=== PATIENT | female | born 1995 | race American Indian/Alaskan Native ===

== ENCOUNTER 2019-02-15 21:00 | Emergency (ER) | payer MEDICAID ==
--- NOTE | 2019-02-15 21:42 | Event Note ---
ED Screening Note Date of service: 02/15/19 ED Screening Note: This initial assessment/diagnostic orders/clinical plan/treatment(s) is/are subject to change based on patients health status, clinical progression and re- assessment by fellow clinical providers in the ED. Further treatment and workup at subsequent clinical providers discretion. Patient/guardian urged not to elope from the ED as their condition may be serious if not clinically assessed and managed. Initial orders include: 23yo BF states that she has nausea, stomach pain, and back pain x 1 week.
[2019-02-15 22:23] LABS: HCG Qualitative,Urine Positive (Negative)
[2019-02-15 22:24] LABS: Bacteria,Urine 1+ /HPF (Negative); Bilirubin,Urine NEG (Negative); Blood,Urine SM (Negative); Color,Urine Yellow (Yellow); Mucus,Urine 1+ /HPF; Protein,Urine <15 mg/dL mg/dL (Negative)
[2019-02-16] MEDS ORDERED: ACETAMINOPHEN 325 MG TAB PO ONE (01:30)
[2019-02-16] MEDS ORDERED: ONDANSETRON 4 MG ODT TAB PO ONE (01:30)
--- NOTE | 2019-02-16 01:36 | Emergency Department Report ---
ED General Adult HPI - General Chief complaint: Abdominal Pain Stated complaint: NAUSEA VOMITING STOMACH CRAMPS Time Seen by Provider: 02/16/19 01:24 Source: patient, RN notes reviewed, old records reviewed Mode of arrival: Ambulatory Limitations: No Limitations - History of Present Illness Initial comments: This is a 23-year-old female. This patient is not known to this provider previously. She believes she might be today. Assuming she is today, she would be 3, para 1. She has a history of right-sided salpingectomy in June of this year for presumed ectopic . The patient presents to the ER today with complaint of one week left lower quadrant and suprapubic abdominal pain, intermittent nausea and vomiting, and left-sided paralumbar back pain. Symptoms intermittent, did not radiate anywhere, and do not have exacerbating or relieving factors. The patient denies irritative and/or obstructive urinary symptoms. The patient makes no complaint of headache, neck pain, chest pain, or right lower quadrant abdominal pain. She indicates that she is not having vaginal bleeding. -: Gradual, week(s) (1) Location: back, abdomen Radiation: non-radiation Quality: aching Consistency: intermittent Improves with: none Worsens with: none - Related Data Previous Rx's Medication Instructions Recorded Last Taken Type Acetaminophen [Non-Aspirin Extra 500 mg PO Q6HR PRN #30 tablet 02/16/19 Unknown Rx Strength] Doxylamine Succinate/Vit B6 1 each PO QHS PRN #30 tablet. 02/16/19 Unknown Rx [Eduar Cano 10-10 mg Tablet] Olimpia Root [Olimpia] 250 mg PO QID PRN #30 capsule 02/16/19 Unknown Rx Vit-Fe Fumar-FA [ 1 tab PO QDAY #30 tablet 02/16/19 Unknown Rx Vitamin] cephALEXin [Keflex] 500 mg PO Q6HR #20 capsule 02/16/19 Unknown Rx Allergies Allergy/AdvReac Type Severity Reaction Status Date / Time No Known Allergies Allergy Unverified 02/15/19 21:35 ED Review of Systems ROS: Stated complaint: NAUSEA VOMITING STOMACH CRAMPS Other details as noted in HPI Constitutional: denies: fever Eyes: denies: eye discharge ENT: denies: congestion Cardiovascular: denies: syncope Gastrointestinal: nausea, vomiting. denies: constipation Genitourinary: denies: dysuria Musculoskeletal: back pain Skin: denies: lesions Neurological: denies: weakness Hematological/Lymphatic: denies: easy bleeding ED Past Medical Hx - Past Medical History Previous Medical History?: No - Surgical History Past Surgical History?: Yes Additional Surgical History: Right Salpingectomy - Social History Smoking Status: Unknown if ever smoked Substance Use Type: None - Medications Home Medications: Home Medications Medication Instructions Recorded Confirmed Last Taken Type Acetaminophen [Non-Aspirin Extra 500 mg PO Q6HR PRN #30 tablet 02/16/19 Unknown Rx Strength] Doxylamine Succinate/Vit B6 1 each PO QHS PRN #30 tablet.dr 02/16/19 Unknown Rx [Diclegis Dr 10-10 mg Tablet] Olimpia Root [Olimpia] 250 mg PO QID PRN #30 capsule 02/16/19 Unknown Rx Vit-Fe Fumar-FA [ 1 tab PO QDAY #30 tablet 02/16/19 Unknown Rx Vitamin] cephALEXin [Keflex] 500 mg PO Q6HR #20 capsule 02/16/19 Unknown Rx ED Physical Exam - General Limitations: No Limitations General appearance: alert, in no apparent distress - Head Head exam: Present: atraumatic, normocephalic - Eye Eye exam: Present: normal appearance, EOMI. Absent: nystagmus - ENT ENT exam: Present: normal exam, normal orophraynx, mucous membranes moist, normal external ear exam - Neck Neck exam: Present: normal inspection, full ROM. Absent: tenderness, meningi smus - Respiratory Respiratory exam: Present: normal lung sounds bilaterally. Absent: respiratory distress - Cardiovascular Cardiovascular Exam: Present: regular rate, normal rhythm, normal heart sounds. Absent: bradycardia, tachycardia, irregular rhythm, systolic murmur, diastolic murmur, rubs, gallop - GI/Abdominal GI/Abdominal exam: Present: soft. Absent: distended, tenderness, guarding, rigid, pulsatile mass - Extremities Exam Extremities exam: Present: normal inspection, full ROM, other (2+ pulses noted in the bilateral upper, lower extremities. There is no long bone tenderness. Musculoskeletal compartments are soft. The pelvis is stable.). Absent: pedal edema, calf tenderness - Back Exam Back exam: Present: normal inspection, full ROM. Absent: tenderness, CVA tenderness (R), CVA tenderness (L), paraspinal tenderness, vertebral tenderness - Neurological Exam Neurological exam: Present: alert, oriented X3, normal gait, other (there is no facial droop. The tongue is midline. Extraocular movements are intact bilaterally. Patient speaking in full complete sentences. Shoulder shrug is intact bilaterally. Hearing is grossly intact bilaterally. Visual acuity intact to finger counting and color perception at a close distance. 5/5 stre ngth 4 extremities. Sensation intact to light touch in 4 extremities.). Absent: motor sensory deficit - Psychiatric Psychiatric exam: Present: normal affect, normal mood - Skin Skin exam: Present: warm, dry, intact, normal color. Absent: rash ED Course Vital Signs 02/15/19 21:13 Temperature 99.3 F Pulse Rate 91 H Respiratory 14 Rate Blood Pressure 106/61 O2 Sat by Pulse 97 Oximetry - Reevaluation(s) Reevaluation #1: 02/16/19 01:35 Differential diagnosis, including but not limited to: Ovarian cyst, urinary t ract infection, , ectopic , nausea and vomiting associated with , muscular abdominal wall pain, muscular back pain secondary to nausea and vomiting of assessment and plan: 23-year-old female suspecting that she is with complaint of one week intermittent nausea, vomiting abdominal pain, back pain, left-sided abdominal pain. She is afebrile with reassuring vital signs, nontender at this time, with no active vomiting. We've recommended laboratory studies, type and screen, obstetrics ultrasound, Tylenol for pain control, and Zofran for nausea. Patient is amenable to this plan of care. She denies irritative and/or obstructive urinary symptoms. There is no CVA tenderness at this time. Her presentation is unlikely to be consistent with pyelonephritis. Reevaluation #2: 02/16/19 03:28 Patient found to be Rh+. Ultrasound confirms intrauterine . Pain is improved. No active vomiting. Patient will be discharged with as needed Tylenol, nausea medication, vitamins, and Keflex for bacteria. She is counseled to follow up with an outpatient computing machine operator to initiate care. ED Medical Decision Making - Lab Data Result diagrams: 02/16/19 01:44 Vital Signs 02/15/19 21:13 Temperature 99.3 F Pulse Rate 91 H Respiratory 14 Rate Blood Pressure 106/61 O2 Sat by Pulse 97 Oximetry Lab Results 11/29/19 Range/Units 22:00 Urine Color Yellow (Yellow) Urine Turbidity Clear (Clear) Urine pH 5.0 (5.0-7.0) Ur Specific [place] 1.030 (1.003-1.030) Urine Protein <15 mg/dl (Negative) mg/dL Urine Glucose (UA) Neg (Negative) mg/dL Urine Ketones 20 (Negative) mg/dL Urine Blood Sm (Negative) Urine Nitrite Neg (Negative) Ur Reducing Substances Not Reportable Urine Bilirubin Neg (Negative) Urine Ictotest Not Reportable Urine Urobilinogen 4.0 (<2.0) mg/dL Ur Leukocyte Esterase Neg (Negative) Urine WBC (Auto) 7.0 H (0.0-6.0) /HPF Urine RBC (Auto) 36.0 (0.0-6.0) /HPF U Epithel Cells (Auto) 3.0 (0-13.0) /HPF Urine Bacteria (Auto) 1+ (Negative) /HPF Urine Mucus 1+ /HPF Urine Yeast (Budding) 2+ /HPF Urine HCG, Qual Positive A (Negative) Vital Signs 02/15/19 21:13 Temperature 99.3 F Pulse Rate 91 H Respiratory 14 Rate Blood Pressure 106/61 O2 Sat by Pulse 97 Oximetry Lab Results 02/15/19 02/16/19 02/16/19 Range/Units 22:00 01:44 01:44 WBC 7.1 (4.5-11.0) K/mm3 RBC 4.13 (3.65-5.03) M/mm3 Hgb 12.6 (10.1-14.3) gm/dl Hct 37.5 (30.3-42.9) % MCV 91 (79-97) fl MCH 31 (28-32) pg MCHC 34 (30-34) % RDW 14.5 (13.2-15.2) % Plt Count 278 (140-440) K/mm3 Urine Color Yellow (Yellow) Urine Turbidity Clear (Clear) Urine pH 5.0 (5.0-7.0) Ur Specific [place] 1.030 (1.003-1.030) Urine Protein <15 mg/dl (Negative) mg/dL Urine Glucose (UA) Neg (Negative) mg/dL Urine Ketones 20 (Negative) mg/dL Urine Blood Sm (Negative) Urine Nitrite Neg (Negative) Ur Reducing Substances Not Reportable Urine Bilirubin Neg (Negative) Urine Ictotest Not Reportable Urine Urobilinogen 4.0 (<2.0) mg/dL Ur Leukocyte Esterase Neg (Negative) Urine WBC (Auto) 7.0 H (0.0-6.0) /HPF Urine RBC (Auto) 36.0 (0.0-6.0) /HPF U Epithel Cells (Auto) 3.0 (0-13.0) /HPF Urine Bacteria (Auto) 1+ (Negative) /HPF Urine Mucus 1+ /HPF Urine Yeast (Budding) 2+ /HPF Urine HCG, Qual Positive A (Negative) Blood Type O POSITIVE - Radiology Data Radiology results: pending, report reviewed, image reviewed ULTRASOUND OBSTETRIC Indication: n llq pain Findings: There is a single, living intrauterine . [place]-rump length = 12 cm = 7 weeks, 3 day(s). heart rate is 160 beats per minute. The ovaries are normal. There is no free fluid. Impression: Single, living intrauterine with estimated sonographic age of 7 weeks, 3 day(s). Signer Name: Gregg Castro MD Signed: 02/16/2019 1:31 AM Workstation Name: [email or web address] ULTRASOUND OBSTETRIC Indication: n llq pain Findings: There is a si ngle, living intrauterine . [place]-rump length = 12 cm = 7 weeks, 3 day(s). heart rate is 160 beats per minute. The ovaries are normal. There is no free fluid. Impression: Single, living intrauterine with estimated sonographic age of 7 weeks, 3 day(s). Signer Name: Gregg Castro MD Signed: 02/16/2019 1:31 AM Workstation Name: [id number] Critical care attestation.: If time is entered above; I have spent that time in minutes in the direct care of this critically ill patient, excluding procedure time. ED Disposition Clinical Impression: History of nausea and vomiting, ASB (asymptomatic bacteriuria) Qualifiers: Weeks of gestation: less than 8 weeks Qualified Code(s): Z3A.01 - Less than 8 weeks gestation of Disposition: DC-01 TO HOME OR SELFCARE Is pt being admited?: No Does the pt Need Aspirin: No Condition: Stable Additional Instructions: Rest, avoid heavy lifting, and avoid strenuous physical activities. Take the nausea medication as needed and directed, pain medication as needed and directed, antibiotics as directed. Advance diet as tolerated. Follow up as leslie n as possible with an outpatient ALARM SERVICE TECHNICIAN physician to initiate care. Return to the emergency room right away with new, worsened or different symptoms, or symptoms not present on the initial emergency room evaluation. Avoid consumption of Motrin, ibuprofen, Naprosyn, Aleve, heavy and/or spicy foods, and alcohol. Referrals: [facility] [Provider Group] - 3-5 Days [facility] [Provider Group] - 3-5 Days [facility] [Provider Group] - 3-5 Days
[2019-02-16 02:06] LABS: Hematocrit 37.5 % (30.3-42.9); Hemoglobin 12.6 gm/dl (10.1-14.3); Mean Corpuscular HGB Conc 34 % (30-34); Mean Corpuscular Volume 91 fl (79-97); Platelet Count 278 K/mm3 (140-440); Red Blood Count 4.13 M/mm3 (3.65-5.03); Red Cell Distribution Width 14.5 % (13.2-15.2)
--- NOTE | 2019-02-16 02:36 | Ultrasound Report ---
ULTRASOUND OBSTETRIC Indication: n llq pain Findings: There is a single, living intrauterine . [place]-rump length = 12 cm = 7 weeks, 3 day(s). heart rate is 160 beats per minute. The ovaries are normal. There is no free fluid. Impression: Single, living intrauterine with estimated sonographic age of 7 weeks, 3 day(s). Signer Name: Gregg Castro MD Signed: 02/16/2019 2:31 AM Workstation Name: [id number]
--- NOTE | 2019-02-16 02:36 | Ultrasound Report ---
ULTRASOUND OBSTETRIC Indication: n llq pain Findings: There is a single, living intrauterine . [place]-rump length = 12 cm = 7 weeks, 3 day(s). heart rate is 160 beats per minute. The ovaries are normal. There is no free fluid. Impression: Single, living intrauterine with estimated sonographic age of 7 weeks, 3 day(s). Signer Name: Gregg Castro MD Signed: 02/16/2019 2:31 AM Workstation Name: [id number]
[2019-02-16 04:46] VITALS: BP 96/47
== END 2019-02-16 03:50 | disposition home or self-care (01) ==
LOC: ED 21:00
DX: O26.891 Other specified pregnancy related conditions, first trimester (principal); R82.71 Bacteriuria; Z3A.01 Less than 8 weeks gestation of pregnancy; Z79.899 Other long term (current) drug therapy
CPT/HCPCS: 36415; 76801; 76817; 81001; 81025; 84702; 85027; 86850; 86900; 86901; Q0162